=== PATIENT | female | born 1930 | race Caucasian/White ===

== ENCOUNTER 2017-04-10 06:41 | Day surgery (SDC) | payer OTHER ==
[~2017-04-10] VITALS: Ht 154.9 cm; Wt 67.6 kg
[2017-04-10 07:34] VITALS: Ht 154.9 cm; Wt 67.6 kg
[2017-04-10] MEDS ORDERED: ALENDRONATE (07:42)
[2017-04-10] MEDS ORDERED: BENAZEPRIL (07:42)
[2017-04-10] MEDS ORDERED: PROPOFOL 60 ML ONE (07:57)
[2017-04-10] MEDS ORDERED: LIDOCAINE 2% (SDV) 5 ML INJ ONE (07:58)
[2017-04-10 08:38] VITALS: BP 165/88; PULSE 78; RESP 20
--- NOTE | 2017-04-10 09:14 | OPPN ---
Date/Time of Note Date/Time of Note DATE: 04/10/17 TIME: 09:12 Operative Report Preoperative Diagnosis Vomiting and colon cancer screening Postoperative Diagnosis Same Operation/Procedure Performed EGD with biopsy Findings 1. Gastritis 2. Hiatal hernia Colonoscopy Findings 1. Diverticulosis 2. Hemorrhoid 3. Negative all the way into cecum Provider: HERNANDEZ DAVIDSON MD Anesthesia Type: MAC Estimated blood loss: none Transfusion Required: no Specimen: none Grafts/Implants: none Complications: no HERNANDEZ DAVIDSON MD Apr 10, 2017 09:14
[2017-04-10 09:45] VITALS: BP 127/64; PULSE 66; RESP 14
--- NOTE | 2017-04-10 10:08 | GILP ---
DATE OF PROCEDURE: 04/10/2017 PROCEDURE PERFORMED: Esophagogastroduodenoscopy with biopsy and colonoscopy. INDICATIONS FOR PROCEDURE: An 86-year-old female undergoing this procedure for epigastric pain and persistent nausea and colonoscopy for colon cancer screening. The patient looks good for her age. CONSENT: The risks of the procedure, related complications, and anesthetic risks, alternatives thoroughly discussed, and informed consent was obtained. FINDINGS: The patient was brought to the GI lab, sedated by Dr. Barclay. After optimal sedation, scope was passed with much ease in the esophagus, which was grossly within normal limits in its entirety. Z-line was at 35 cm. The patient had a hiatal hernia. Stomach mucosa revealed gastritis. Multiple biopsies obtained to rule out H pylori infection. Duodenum 1st and 2nd part including ampulla was totally within normal limits. Retroversion in the stomach also was normal. No varicose vein identified. Scope was straightened out and removed with good patient tolerance. ASSESSMENT: 1. Gastritis. 2. Normal esophagus. 3. Z-line at 35 cm. 4. Small hiatal hernia. 5. Normal duodenum and ampulla. PLAN: This finding cannot explain her upper epigastric pain and nausea. The patient will need further workup in the form of CAT scan or the sonogram to make sure there is no gallstone or pancreatic lesion. COLONOSCOPY: Patient was turned around. Scope was passed with much ease into the rectum. Advanced through sigmoid, descending, transverse colon all the way into the cecum. Appendiceal orifice identified. The patient had severe diverticulosis in the left side of the colon, which fixed the colon at times, technically making it difficult to reduce it also while going. While coming out mucosa thoroughly inspected. No gross lesion was identified. Clarity and cleanliness was good. Hemorrhoids seen. IMPRESSION: 1. Severe diverticulosis left side of the colon. 2. Negative all the way into cecum. 3. Hemorrhoids. PLAN: Stay on high-fiber diet. Dictated By: Wilber Saavedra MD /natalie/sia /Document#: [id number] ; Dr. Atul Yap
== END 2017-04-10 18:03 | disposition home or self-care (01) ==
LOC: GIL 06:41
PROVIDERS: ATTEND Internal Medicine Gastroenterology
DX: R12 Heartburn (principal); K29.50 Unspecified chronic gastritis without bleeding; K44.9 Diaphragmatic hernia without obstruction or gangrene; K57.90 Diverticulosis of intestine, part unspecified, without perforation or abscess without bleeding; K64.9 Unspecified hemorrhoids; I10 Essential (primary) hypertension
CPT/HCPCS: 43239; 45378; 88305; 88312; Z7610